=== PATIENT | female | born 1980 | race Asian ===

== ENCOUNTER 2017-12-29 08:40 | Day surgery (SDC) | payer BC ==
[2017-12-29] MEDS ORDERED: Lactated Ringers 1,000 ML IV SCH (08:45)
[2017-12-29] MEDS ORDERED: fentaNYL 100 MCG/2 ML SDV IV ONE (10:30)
[2017-12-29] MEDS ORDERED: Midazolam 1 MG/ML 2 ML SDV IV ONE (10:30)
[2017-12-29] MEDS ORDERED: Propofol 200 MG/20 ML SDV IV ONE (10:30)
--- NOTE | 2017-12-29 10:53 | PCM.OPNOTE ---
- General Post-Op/Procedure Note Date of Surgery/Procedure: 12/29/17 Operative Procedure(s): c scope Findings: bleeding hemorrhoids Pre Op Diagnosis: hematochezia Post-Op Diagnosis: bleeding hemorrhoids Anesthesia Technique: DAMIAN Primary Surgeon: Mike Farrell Anesthesia Provider: Alex Valdez Pathology: none Complications: None Condition: Good Free Text/Narrative:: see dictation
--- NOTE | 2017-12-29 17:59 | OR ---
DATE OF OPERATION: 12/29/2017 SURGEON: Mike Farrell MD PROCEDURE PERFORMED: Colonoscopy. PREOPERATIVE DIAGNOSIS: Hematochezia. POSTOPERATIVE DIAGNOSIS: Bleeding hemorrhoids. INDICATIONS FOR PROCEDURE: This is a 37-year-old female who is referred with a history of hematochezia. She was offered and accepted a colonoscopy. DESCRIPTION OF OPERATION: After an excellent IV sedation was administered, digital rectal exam was performed. No marked abnormality was noted. Flexible colonoscope was inserted and advanced to the cecum without difficulty. The following findings were noted: 1. Ascending colon: Unremarkable. 2. Transverse colon: Unremarkable. 3. Descending colon: Unremarkable. 4. Sigmoid and rectum: Unremarkable. 5. The patient does have evidence of internal hemorrhoids as well as external hemorrhoids. The internal component appears to have some mild oozing. The colon was deflated. Scope was removed. We will have the patient follow up for hemorrhoid banding at a later date. /[id number] /MODL
== END 2017-12-29 12:16 | disposition home or self-care (01) ==
LOC: FB.SDS 08:40
PROVIDERS: ATTEND Surgery
DX: K64.8 Other hemorrhoids (principal); K64.4 Residual hemorrhoidal skin tags; Z79.899 Other long term (current) drug therapy
CPT/HCPCS: 45378; 81025; J2250; J2704; J3010; J7120

== ENCOUNTER 2020-02-29 00:50 | Emergency (ER) | payer BC ==
[2020-02-29] MEDS: Aspirin 81 MG Tab.Chew PO ONE (01:05)
[2020-02-29] MEDS: LORazepam 2 MG/ML SDV IVPUSH ONE (01:32)
[2020-02-29] MEDS: Nitroglycerin 0.4 MG Tab.SL SL ONE (01:36)
[2020-02-29] MEDS: Iopamidol 755 Mg/ML 100 ML Bottle IV ONE (01:44)
[2020-02-29] MEDS: Potassium Chloride 20 MEQ Tab.ER PO ONE (01:50)
--- NOTE | 2020-02-29 02:10 | EDM.PDOC ---
ED HPI GENERAL MEDICAL PROBLEM - General Chief Complaint: Chest Pain Stated Complaint: CHEST PAIN Time Seen by Provider: 02/29/20 01:05 Source of Information: Reports: Patient History Limitations: Reports: No Limitations - History of Present Illness INITIAL COMMENTS - FREE TEXT/NARRATIVE: Patient presented to the ED because she woke up with left sided chest pain, nausea and dyspnea. The pain is dull 6/10, and couldn't catch her breath . she never had chesty pain in the past and is otherwise healthy. She is taking OCP. 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: Musculoskeletal History: Reports: Other (See Below) Other Musculoskeletal History: has back pain, sciatica Neurological History: Reports: None Psychiatric History: Reports: None Endocrine/Metabolic History: Reports: Obesity/BMI 30+ Hematologic History: Reports: None Immunologic History: Reports: None Oncologic (Cancer) History: Reports: None Dermatologic History: Reports: None - Past Surgical History Head Surgeries/Procedures: Reports: None HEENT Surgical History: Reports: None Cardiovascular Surgical History: Reports: None Respiratory Surgical History: Reports: None GI Surgical History: Reports: None Female Surgical History: Reports: None Endocrine Surgical History: Reports: None Neurological Surgical History: Reports: None Musculoskeletal Surgical History: Reports: Other (See Below) Other Musculoskeletal Surgeries/Procedures:: LEFT BURSECTOMY Dermatological Surgical History: Reports: None Social & Family History - Tobacco Use Smoking Status *Q: Never Smoker Second Hand Smoke Exposure: No - Caffeine Use Caffeine Use: Reports: Coffee, Soda - Recreational Drug Use Recreational Drug Use: No ED ROS GENERAL - Review of Systems Review Of Systems: See Below Constitutional: Reports: No Symptoms HEENT: Reports: No Symptoms Respiratory: Reports: No Symptoms Cardiovascular: Reports: No Symptoms Endocrine: Reports: No Symptoms GI/Abdominal: Reports: No Symptoms : Reports: No Symptoms Musculoskeletal: Reports: No Symptoms Skin: Reports: No Symptoms Neurological: Reports: No Symptoms Psychiatric: Reports: No Symptoms Hematologic/Lymphatic: Reports: No Symptoms Immunologic: Reports: No Symptoms ED EXAM, GENERAL - Physical Exam Exam: See Below Exam Limited By: Intoxication General Appearance: Alert, No Apparent Distress Ears: Normal External Exam, Normal Canal Nose: Normal Inspection, Normal Mucosa, No Blood Throat/Mouth: Normal Inspection, Normal Lips, Normal Teeth Head: Atraumatic, Normocephalic Neck: Normal Inspection, Supple, Non-Tender, Full Range of Motion Respiratory/Chest: No Respiratory Distress, Lungs Clear, Normal Breath Sounds Cardiovascular: Normal Peripheral Pulses, Regular Rate, Rhythm, No Edema, No Gallop GI/Abdominal: Normal Bowel Sounds, Soft, Non-Tender, No Organomegaly Extremities: Normal Inspection, Normal Range of Motion, Non-Tender Neurological: Oriented, CN II-XII Intact, Normal Cognition Course - Vital Signs Text/Narrative:: EKG/Labs/Chest CT was discussed with patient and verbalized full understanding. ASA 324 mg po x1 ativan 1 mg IV x1 NTG SL x1 Toradol 30 mg IV x1 Last Recorded V/S: Last Vital Signs Temp 35.9 C L 02/29/20 01:00 Pulse 72 02/29/20 02:20 Resp 16 02/29/20 02:20 BP 125/85 02/29/20 02:20 Pulse Ox 100 02/29/20 02:20 - Orders/Labs/Meds Orders: Active Orders 24 hr Category Date Time Status EKG Documentation Completion [RC] STAT Care 02/29/20 01:05 Active Ang Chest [CT] Stat Exams 02/29/20 01:05 Taken Labs: Laboratory Tests 02/29/20 02/29/20 02/29/20 Range/Units 01:12 01:12 01:12 WBC 10.0 (4.5-12.0) X10-3/uL RBC 4.61 (3.23-5.20) x10(6)uL Hgb 12.9 (11.5-15.5) g/dL Hct 38.8 D (30.0-51.3) % MCV 84.2 (80-96) fL MCH 28.0 (27.7-33.6) pg MCHC 33.3 (32.2-35.4) g/dL RDW 12.6 (11.5-15.5) % Plt Count 406 H (125-369) X10(3)uL MPV 7.7 (7.4-10.4) fL Neut % (Auto) 59.0 (46-82) % Lymph % (Auto) 34.5 (13-37) % [place] % (Auto) 4.4 (4-12) % Eos % (Auto) 1 (1.0-5.0) % Baso % (Auto) 1 (0-2) % Neut # (Auto) 5.9 (1.6-8.3) # Lymph # (Auto) 3.5 (0.6-5.0) # [place] # (Auto) 0.4 (0.0-1.3) # Eos # (Auto) 0.1 (0.0-0.8) # Baso # (Auto) 0.1 (0.0-0.2) # PT (9.0-11.1) sec INR (1.00-1.24) APTT (24.4-33.2) SECONDS D-Dimer, Quantitative (0.0-0.59) mg/LFEU Sodium 142 (135-145) mmol/L Potassium 3.4 L (3.5-5.3) mmol/L Chloride 104 (100-110) mmol/L Carbon Dioxide 25 (21-32) mmol/L BUN 11 (7-18) mg/dL Creatinine 0.8 (0.55-1.02) mg/dL Est Cr Clr Drug Dosing TNP Estimated GFR (MDRD) > 60 (>60) BUN/Creatinine Ratio 13.8 (9-20) Glucose 96 (80-116) mg/dL Calcium 8.7 (8.6-10.2) mg/dL Total Bilirubin 0.3 (0.1-1.3) mg/dL AST 18 (5-25) IU/L ALT 18 (12-36) U/L Alkaline Phosphatase 59 (56-112) IU/L Troponin I 5.3 (4.0-60.3) pg/mL Total Protein 8.1 H (6.0-8.0) g/dL Albumin 3.5 (3.5-5.2) g/dL Globulin 4.6 g/dL Albumin/Globulin Ratio 0.8 02/29/20 02/29/20 Range/Units 01:12 01:12 WBC (4.5-12.0) X10-3/uL RBC (3.23-5.20) x10(6)uL Hgb (11.5-15.5) g/dL Hct (30.0-51.3) % MCV (80-96) fL MCH (27.7-33.6) pg MCHC (32.2-35.4) g/dL RDW (11.5-15.5) % Plt Count (125-369) X10(3)uL MPV (7.4-10.4) fL Neut % (Auto) (46-82) % Lymph % (Auto) (13-37) % [place] % (Auto) (4-12) % Eos % (Auto) (1.0-5.0) % Baso % (Auto) (0-2) % Neut # (Auto) (1.6-8.3) # Lymph # (Auto) (0.6-5.0) # [place] # (Auto) (0.0-1.3) # Eos # (Auto) (0.0-0.8) # Baso # (Auto) (0.0-0.2) # PT 9.9 (9.0-11.1) sec INR 0.91 L (1.00-1.24) APTT 24.3 L (24.4-33.2) SECONDS D-Dimer, Quantitative 0.27 (0.0-0.59) mg/LFEU Sodium (135-145) mmol/L Potassium (3.5-5.3) mmol/L Chloride (100-110) mmol/L Carbon Dioxide (21-32) mmol/L BUN (7-18) mg/dL Creatinine (0.55-1.02) mg/dL Est Cr Clr Drug Dosing Estimated GFR (MDRD) (>60) BUN/Creatinine Ratio (9-20) Glucose (80-116) mg/dL Calcium (8.6-10.2) mg/dL Total Bilirubin (0.1-1.3) mg/dL AST (5-25) IU/L ALT (12-36) U/L Alkaline Phosphatase (56-112) IU/L Troponin I (4.0-60.3) pg/mL Total Protein (6.0-8.0) g/dL Albumin (3.5-5.2) g/dL Globulin g/dL Albumin/Globulin Ratio Meds: Medications Discontinued Medications Generic Name Dose Route Start Last Admin Trade Name Misael PRN Reason Stop Dose Admin Aspirin 324 mg 02/29/20 01:09 02/29/20 01:05 Aspirin PO 02/29/20 01:10 324 mg ONETIME ONE Administration Iopamidol 100 ml 02/29/20 01:12 02/29/20 01:44 Isovue-370 (76%) IV 02/29/20 01:13 100 ml . DIRECTED ONE Administration Ketorolac Tromethamine 30 mg 02/29/20 02:07 02/29/20 02:12 Toradol IVPUSH 02/29/20 02:08 30 mg ONETIME ONE Administration Lorazepam 1 mg 02/29/20 01:08 02/29/20 01:32 Ativan IVPUSH 02/29/20 01:09 1 mg ONETIME ONE Administration Nitroglycerin 0.4 mg 02/29/20 01:09 02/29/20 01:36 Nitrostat SL 02/29/20 01:10 0.4 mg ONETIME ONE Administration Potassium Chloride 40 meq 02/29/20 01:39 02/29/20 01:50 Klor-Con M20 PO 02/29/20 01:40 40 meq ONETIME ONE Administration Departure - Departure Time of Disposition: 02:05 Disposition: Home, Self-Care 01 Condition: Good Clinical Impression: Atypical chest pain, Anxiety attack Instructions: Hypokalemia, Panic Attack, [id number], Nonspecific Chest Pain, Adult, [id number] Referrals: Dakota Dwyer MD [Primary Care Provider] - Forms: ED Department Discharge Additional Instructions: please read discharge instructions on atypical chest pain and anxiety attack take ibuprofen 800 mg with tylenol 1000 mg every 8 hours as needed for pain follow up with your doctor if your anxiety attack is becoming more frequent. Sepsis Event Note - Evaluation Sepsis Screening Result: No Definite Risk - Focused Exam Vital Signs: Vital Signs Temp Pulse Resp BP BP Pulse Ox 02/29/20 02:20 72 16 125/85 100 02/29/20 01:36 163/96 H 02/29/20 01:03 76 17 159/92 H 100 02/29/20 01:01 77 17 171/105 H 100 02/29/20 01:00 35.9 C L 82 17 180/122 H 100 02/29/20 00:58 58 L 17 158/89 H 100 Date Exam was Performed: 02/29/20 Time Exam was Performed: 07:51 - My Orders Last 24 Hours: My Active Orders 02/29/20 01:05 EKG Documentation Completion [RC] STAT Ang Chest [CT] Stat - Assessment/Plan Last 24 Hours: My Active Orders 02/29/20 01:05 EKG Documentation Completion [RC] STAT Ang Chest [CT] Stat
[2020-02-29] MEDS: Ketorolac 30 MG/ML SDV IVPUSH ONE (02:12)
== END 2020-02-29 02:22 | disposition home or self-care (01) ==
LOC: FB.ED 00:50
DX: F41.9 Anxiety disorder, unspecified (principal); E66.9 Obesity, unspecified; Z68.32 Body mass index [BMI] 32.0-32.9, adult
CPT/HCPCS: 36415; 71275; 80053; 84484; 85025; 85379; 85610; 85730; 93005; 96374; 96375; 99285-25; A9270-GY; J1885; J2060; Q9967

== ENCOUNTER 2021-02-01 23:37 | Emergency (ER) | payer BC ==
--- NOTE | 2021-02-02 00:45 | EDM.PDOC ---
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 She passed a large blood clot containing tissue at 2100 tonight. Then did a home test which was positive. Patient had similar flank pain with previous miscarriages. She developed fevers, chills, and dizziness after passing the clot and tissue. Patient has only mild vaginal bleeding at this time. She is a Ab3. LMP was 12/15/2020. Denies any other complaints. Lower abdominal & L lower back Pain Score (Numeric/FACES): 7 - Related Data Allergies Allergy/AdvReac Type Severity Reaction Status Date / Time No Known Allergies Allergy Verified 02/01/21 23:54 Home Meds: Home Meds Cyclobenzaprine [Flexeril] 10 mg PO BEDTIME PRN 02/01/21 [History] Multivitamin [One-Daily Multi-Vitamin] 1 each PO DAILY 02/01/21 [History] Past Medical History HEENT History: Reports: Impaired Vision Cardiovascular History: Reports: None Respiratory History: Reports: None Gastrointestinal History: Reports: Chronic Constipation, Other (See Below) Other Gastrointestinal History: celiac disease Genitourinary History: Reports: UTI, Recurrent 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: Musculoskeletal History: Reports: Back Pain, Chronic, Other (See Below) Other Musculoskeletal History: has back pain, sciatica, hx compression fx back Neurological History: Reports: Migraines Psychiatric History: Reports: Anxiety Endocrine/Metabolic History: Reports: Obesity/BMI 30+ Hematologic History: Reports: None Immunologic History: Reports: None Oncologic (Cancer) History: Reports: None Dermatologic History: Reports: None - Past Surgical History Head Surgeries/Procedures: Reports: None HEENT Surgical History: Reports: None Cardiovascular Surgical History: Reports: None Respiratory Surgical History: Reports: None GI Surgical History: Reports: Colonoscopy Female Surgical History: Reports: None Endocrine Surgical History: Reports: None Neurological Surgical History: Reports: None Musculoskeletal Surgical History: Reports: Other (See Below) Other Musculoskeletal Surgeries/Procedures:: LEFT BURSECTOMY Dermatological Surgical History: Reports: None Social & Family History - Family History Family Medical History: No Pertinent Family History - Tobacco Use Tobacco Use Status *Q: Never Tobacco User - Caffeine Use Caffeine Use: Reports: None - Recreational Drug Use Recreational Drug Use: No ED ROS GENERAL - Review of Systems Review Of Systems: Comprehensive ROS is negative, except as noted in HPI. ED EXAM - Physical Exam Exam: See Below Exam Limited By: No Limitations General Appearance: Alert, WD/WN, No Apparent Distress Throat/Mouth: No Airway Compromise Head: Atraumatic, Normocephalic Neck: Supple Respiratory/Chest: No Respiratory Distress, Lungs Clear, Normal Breath Sounds Cardiovascular: Regular Rate, Rhythm, No Murmur GI/Abdominal Exam: Normal Bowel Sounds, Soft, No Distention, Tender (LLQ) Back Exam: CVA Tenderness (L) Extremities: Normal Range of Motion Neurological: Alert, Oriented, Normal Cognition Psychiatric: Normal Affect, Normal Mood Skin Exam: Warm, Dry, Intact Course - Vital Signs Last Recorded V/S: Last Vital Signs Temp 36.5 C 02/01/21 23:38 Pulse 83 02/01/21 23:38 Resp 18 02/01/21 23:38 BP 143/88 H 02/01/21 23:38 Pulse Ox 100 02/01/21 23:38 - Orders/Labs/Meds Orders: Active Orders 24 hr Category Date Time Status ABO/RH TYPE [BBK] Stat Lab 02/02/21 00:15 Received Labs: Laboratory Tests 02/01/21 02/01/21 02/02/21 Range/Units 23:50 23:50 00:15 WBC 9.1 (3.0-10.3) x10-3/uL RBC 3.99 (3.60-5.20) x10(6)uL Hgb 11.8 (11.4-15.5) g/dL Hct 35.2 (34.2-48.2) % MCV 88.3 (76.7-100.5) fL MCH 29.5 (23.9-33.9) pg MCHC 33.4 (31.9-34.8) g/dL RDW 13.1 (12.3-16.5) % Plt Count 301 (151-488) x10(3)uL MPV 8.4 (7.1-12.4) fL Neut % (Auto) 56.6 (30.8-76.2) % Lymph % (Auto) 34.8 (18.4-52.1) % [place] % (Auto) 6.5 (4.4-15.7) % Eos % (Auto) 1.4 (0.6-8.1) % Baso % (Auto) 0.7 (0.2-1.5) % Neut # (Auto) 5.2 (1.5-6.3) x10-3/uL Lymph # (Auto) 3.2 (1.0-4.4) x10-3/uL [place] # (Auto) 0.6 (0.3-1.0) x10-3/uL Eos # (Auto) 0.1 (0.0-0.8) x10-3/uL Baso # (Auto) 0.1 (0.0-0.1) x10-3/uL Sodium (135-145) mmol/L Potassium (3.5-5.3) mmol/L Chloride (100-110) mmol/L Carbon Dioxide (21-32) mmol/L BUN (7-18) mg/dL Creatinine (0.55-1.02) mg/dL Est Cr Clr Drug Dosing mL/min Estimated GFR (MDRD) (>60) BUN/Creatinine Ratio (9-20) Glucose (80-116) mg/dL Calcium (8.6-10.2) mg/dL Total Bilirubin (0.1-1.3) mg/dL AST (5-25) IU/L ALT (12-36) U/L Alkaline Phosphatase (56-112) IU/L Total Protein (6.0-8.0) g/dL Albumin (3.5-5.2) g/dL Globulin g/dL Albumin/Globulin Ratio HCG, Quant (<5) mIU/mL Urine Color Yellow (YELLOW) Urine Appearance Slightly cloudy (CLEAR) Urine pH 6.0 (5.0-6.5) Ur Specific [place] 1.015 (1.010-1.025) Urine Protein Negative (NEGATIVE) mg/dL Urine Glucose (UA) Normal (NORMAL) mg/dL Urine Ketones Negative (NEGATIVE) mg/dL Urine Occult Blood Large H (NEGATIVE) Urine Nitrite Negative (NEGATIVE) Urine Bilirubin Negative (NEGATIVE) Urine Urobilinogen Normal (NEGATIVE) mg/dL Ur Leukocyte Esterase Negative (NEGATIVE) Urine RBC 30-40 H (0-5) Urine WBC 0-5 (0-5) Ur Squamous Epith Cells Few H (NS,R,O) Urine Bacteria Few H (NS) Urine Mucus Few H (NS) Urine HCG, Qual Positive H (NEGATIVE) 02/02/21 02/02/21 Range/Units 00:15 00:15 WBC (3.0-10.3) x10-3/uL RBC (3.60-5.20) x10(6)uL Hgb (11.4-15.5) g/dL Hct (34.2-48.2) % MCV (76.7-100.5) fL MCH (23.9-33.9) pg MCHC (31.9-34.8) g/dL RDW (12.3-16.5) % Plt Count (151-488) x10(3)uL MPV (7.1-12.4) fL Neut % (Auto) (30.8-76.2) % Lymph % (Auto) (18.4-52.1) % [place] % (Auto) (4.4-15.7) % Eos % (Auto) (0.6-8.1) % Baso % (Auto) (0.2-1.5) % Neut # (Auto) (1.5-6.3) x10-3/uL Lymph # (Auto) (1.0-4.4) x10-3/uL [place] # (Auto) (0.3-1.0) x10-3/uL Eos # (Auto) (0.0-0.8) x10-3/uL Baso # (Auto) (0.0-0.1) x10-3/uL Sodium 142 (135-145) mmol/L Potassium 3.7 (3.5-5.3) mmol/L Chloride 104 (100-110) mmol/L Carbon Dioxide 25 (21-32) mmol/L BUN 11 (7-18) mg/dL Creatinine 0.7 (0.55-1.02) mg/dL Est Cr Clr Drug Dosing 75.20 mL/min Estimated GFR (MDRD) > 60 (>60) BUN/Creatinine Ratio 15.7 (9-20) Glucose 87 (80-116) mg/dL Calcium 8.1 L (8.6-10.2) mg/dL Total Bilirubin 0.2 (0.1-1.3) mg/dL AST 16 D (5-25) IU/L ALT 21 D (12-36) U/L Alkaline Phosphatase 55 L (56-112) IU/L Total Protein 6.9 (6.0-8.0) g/dL Albumin 3.3 L (3.5-5.2) g/dL Globulin 3.6 g/dL Albumin/Globulin Ratio 0.9 HCG, Quant 310 (<5) mIU/mL Urine Color (YELLOW) Urine Appearance (CLEAR) Urine pH (5.0-6.5) Ur Specific [place] (1.010-1.025) Urine Protein (NEGATIVE) mg/dL Urine Glucose (UA) (NORMAL) mg/dL Urine Ketones (NEGATIVE) mg/dL Urine Occult Blood (NEGATIVE) Urine Nitrite (NEGATIVE) Urine Bilirubin (NEGATIVE) Urine Urobilinogen (NEGATIVE) mg/dL Ur Leukocyte Esterase (NEGATIVE) Urine RBC (0-5) Urine WBC (0-5) Ur Squamous Epith Cells (NS,R,O) Urine Bacteria (NS) Urine Mucus (NS) Urine HCG, Qual (NEGATIVE) - Re-Assessments/Exams Free Text/Narrative Re-Assessment/Exam: 02/02/21 00:56 [facility] ABOR[facility] still pending. Patient's blood type per [place] is AB positive. Departure - Departure Time of Disposition: 00:57 Disposition: Home, Self-Care 01 Condition: Good Clinical Impression: Spontaneous - Discharge Information Instructions: Miscarriage, [id number] Referrals: Dakota Dwyer MD [Primary Care Provider] - 2 Days Forms: ED Department Discharge Additional Instructions: Take Tylenol as needed for pain. Follow up with Dr. Dwyer in 2-3 days. Return to the ER if symptoms worsen. Sepsis Event Note (ED) - Evaluation Sepsis Screening Result: No Definite Risk - Focused Exam Vital Signs: Vital Signs Temp Pulse Resp BP Pulse Ox 02/01/21 23:38 36.5 C 83 18 143/88 H 100 - My Orders Last 24 Hours: My Active Orders 02/02/21 00:15 ABO/RH TYPE [BBK] Stat - Assessment/Plan Last 24 Hours: My Active Orders 02/02/21 00:15 ABO/RH TYPE [BBK] Stat
== END 2021-02-02 01:25 | disposition home or self-care (01) ==
LOC: FB.ED 23:37
DX: O03.9 Complete or unspecified spontaneous abortion without complication (principal); E66.9 Obesity, unspecified; Z68.28 Body mass index [BMI] 28.0-28.9, adult
CPT/HCPCS: 36415; 80053; 81001; 81025; 84702; 85025; 86900; 86901; 99284

== ENCOUNTER 2023-10-09 21:50 | Emergency (ER) | payer BC ==
[2023-10-09 22:28] LABS: BASOPHILS PERCENT AUTO 0.4 % (0.2-1.5); EOSINOPHILS ABSOLUTE AUTO 0.2 x10-3/uL (0.0-0.8); HEMATOCRIT 38.9 % (34.2-48.2); HEMOGLOBIN 13.2 g/dL (11.4-15.5); LYMPHOCYTES ABSOLUTE AUTO 2.9 x10-3/uL (1.0-4.4); LYMPHOCYTES PERCENT AUTO 30.3 % (18.4-52.1); MEAN CORPUSCULAR HEMOGLOBIN 29.4 pg (23.9-33.9); MEAN CORPUSCULAR VOLUME 86.5 fL (76.7-100.5); MEAN PLATELET VOLUME 7.8 fL (7.1-12.4); MONOCYTES ABSOLUTE AUTO 0.6 x10-3/uL (0.3-1.0); MONOCYTES PERCENT AUTO 6.1 % (4.4-15.7); NEUTROPHILS ABSOLUTE AUTO 5.9 x10-3/uL (1.5-6.3); NEUTROPHILS PERCENT AUTO 61.1 % (30.8-76.2); PLATELET COUNT,PLT 318 x10(3)uL (151-488); RED CELL DISTRIBUTION WIDTH 13.3 % (12.3-16.5); WHITE BLOOD CELL COUNT,WBC 9.6 x10-3/uL (3.0-10.3)
[2023-10-09 22:35] LABS: BLOOD UREA NITROGEN,BUN 8 mg/dL (7-18); BUN/CREATININE RATIO 13.3 (9-20); CALCIUM 8.8 mg/dL (8.6-10.2); CARBON DIOXIDE,CO2 26 mmol/L (21-32); CHLORIDE,CL 103 mmol/L (100-110); CREATININE 0.6 mg/dL (0.55-1.02); EST CRCL DRUG DOSING (CG) 85.05 mL/min; ESTIMATED GFR 113 mL/min (>60); GLUCOSE RANDOM 106 mg/dL (80-116); POTASSIUM,K 3.3 mmol/L (3.5-5.3); SODIUM,NA 139 mmol/L (135-145)
[2023-10-09 22:42] LABS: A/G RATIO 0.8; ALANINE AMINOTRANSFERASE,ALT 22 U/L (12-36); ALBUMIN 3.5 g/dL (3.5-5.2); ALKALINE PHOSPHATASE 71 IU/L (56-112); ASPARTATE AMNIOTRANSFERASE,AST 18 IU/L (5-25); BILIRUBIN TOTAL 0.6 mg/dL (0.1-1.3); PROTEIN TOTAL,TP 7.8 g/dL (6.0-8.0)
[2023-10-09 22:43] LABS: TROPONIN I 4.8 pg/mL (4.0-60.3)
[2023-10-09 22:47] LABS: BILIRUBIN,URINE NEGATIVE (NEGATIVE); GLUCOSE,URINE NORMAL (NORMAL); KETONES,URINE NEGATIVE (NEGATIVE); LEUKOCYTE ESTERASE,URINE NEGATIVE (NEGATIVE); NITRITE,URINE NEGATIVE (NEGATIVE); OCCULT BLOOD,URINE NEGATIVE (NEGATIVE); PROTEIN,URINE NEGATIVE (NEGATIVE); UROBILINOGEN,URINE NORMAL (NEGATIVE)
[2023-10-09 22:49] LABS: C-REACTIVE PROTEIN < 0.50 mg/dL (<0.50)
[2023-10-09 22:54] LABS: APPEARANCE,URINE SLIGHTLY CLOUDY (CLEAR); BACTERIA,URINE FEW (NS); COLOR,URINE YELLOW (YELLOW); MUCUS,URINE FEW (NS); RBC,URINE 0-5 (0-5); SQUAMOUS EPITHELIAL CELLS,UR MODERATE (NS,R,O); WBC,URINE 0-5 (0-5)
[2023-10-09 23:34] LABS: INFLUENZA A NAA NEGATIVE (NEGATIVE); INFLUENZA B NAA NEGATIVE (NEGATIVE); RESPIRATORY SYNCYTIAL VIR NAA NEGATIVE (NEGATIVE)
[2023-10-09 23:36] LABS: CORONAVIRUS COVID-19 NAA NEGATIVE (NEGATIVE)
== END 2023-10-09 23:54 | disposition home or self-care (01) ==
LOC: FB.ED 21:50
DX: B34.9 Viral infection, unspecified (principal); E66.9 Obesity, unspecified; Z68.32 Body mass index [BMI] 32.0-32.9, adult; Z20.822 Contact with and (suspected) exposure to COVID-19; Z79.899 Other long term (current) drug therapy
CPT/HCPCS: 0241U; 36415; 80053; 81001; 84484; 85025; 85379; 86140; 93005; 99285

== ENCOUNTER 2024-07-16 14:32 | Emergency (ER) | payer BC ==
[2024-07-16] MEDS: Sodium Chloride 0.9% 10 ML Syringe FLUSH PRN (14:45)
[2024-07-16 15:02] LABS: BLOOD UREA NITROGEN,BUN 5 mg/dL (7-18); BUN/CREATININE RATIO 7.1 (9-20); CALCIUM 8.3 mg/dL (8.6-10.2); CARBON DIOXIDE,CO2 27 mmol/L (21-32); CHLORIDE,CL 102 mmol/L (100-110); CREATININE 0.7 mg/dL (0.55-1.02); ESTIMATED GFR 109 mL/min (>60); GLUCOSE RANDOM 169 mg/dL (80-116); POTASSIUM,K 3.5 mmol/L (3.5-5.3); SODIUM,NA 137 mmol/L (135-145)
[2024-07-16 15:05] LABS: BASOPHILS ABSOLUTE AUTO 0.1 x10-3/uL (0.0-0.1); BASOPHILS PERCENT AUTO 0.7 % (0.2-1.5); EOSINOPHILS ABSOLUTE AUTO 0.1 x10-3/uL (0.0-0.8); EOSINOPHILS PERCENT AUTO 1.5 % (0.6-8.1); HEMATOCRIT 38.8 % (34.2-48.2); HEMOGLOBIN 12.9 g/dL (11.4-15.5); LYMPHOCYTES ABSOLUTE AUTO 1.9 x10-3/uL (1.0-4.4); LYMPHOCYTES PERCENT AUTO 23.8 % (18.4-52.1); MEAN CORPUSCULAR HEMOGLOBIN 28.2 pg (23.9-33.9); MEAN CORPUSCULAR HGB CONC 33.4 g/dL (31.9-34.8); MEAN CORPUSCULAR VOLUME 84.5 fL (76.7-100.5); MEAN PLATELET VOLUME 7.8 fL (7.1-12.4); MONOCYTES ABSOLUTE AUTO 0.6 x10-3/uL (0.3-1.0); MONOCYTES PERCENT AUTO 7.5 % (4.4-15.7); NEUTROPHILS ABSOLUTE AUTO 5.2 x10-3/uL (1.5-6.3); NEUTROPHILS PERCENT AUTO 66.5 % (30.8-76.2); PLATELET COUNT,PLT 300 x10(3)uL (151-488); RED BLOOD CELL COUNT 4.59 x10(6)uL (3.60-5.20); RED CELL DISTRIBUTION WIDTH 12.7 % (12.3-16.5); WHITE BLOOD CELL COUNT,WBC 7.8 x10-3/uL (3.0-10.3)
[2024-07-16 15:08] LABS: ALANINE AMINOTRANSFERASE,ALT 19 U/L (12-36); ALBUMIN 3.5 g/dL (3.5-5.2); ALKALINE PHOSPHATASE 70 IU/L (56-112); ASPARTATE AMNIOTRANSFERASE,AST 16 IU/L (5-25); BILIRUBIN TOTAL 0.5 mg/dL (0.1-1.3); PROTEIN TOTAL,TP 7.2 g/dL (6.0-8.0)
[2024-07-16] MEDS: Sodium Chloride 0.9% 1,000 ML IV ONE (15:15)
[2024-07-16] MEDS: LORazepam 2 MG/ML SDV IVPUSH ONE (16:13)
== END 2024-07-16 16:33 | disposition home or self-care (01) ==
LOC: FB.ED 14:32
DX: F41.0 Panic disorder [episodic paroxysmal anxiety] (principal); R07.89 Other chest pain; E66.9 Obesity, unspecified; Z79.899 Other long term (current) drug therapy; Z68.33 Body mass index [BMI] 33.0-33.9, adult
CPT/HCPCS: 71046; 80053; 84484; 85025; 86140; 96361; 96374; 99285; J2060; J3490; J7030; 93010; 99284